=== PATIENT | female | born 1950 | race Caucasian/White ===

== ENCOUNTER 2016-09-20 06:32 | Outpatient (CLI) ==
[2016-06-04 13:44] VITALS: BMI 34.5
--- NOTE | 2016-09-21 08:49 | ECHO2D ---
Date of Exam: 09/20/16 Ordering Physician: EVENS JERONIMO Reason for Echo: CHEST PAIN, SOB, CABG WITH STENT M-Mode Normal Adult Results LV Dimensions Normal Adult Results AoV Opening excursions >1.6 >1.6 LVEDD-base- 3.5-5.8 4.9 Ao root dimensions 2.0-3.7 3.5 LVESD-base- 3.1-4.6 L. Atrium dimensions 1.9-3.8 3.7 Post. Wall thickness 0.8-1.1 1.2 IV septum (thickness) 0.7-1.2 1.2 Post. Wall excursion 0.72-1.3 NORMAL Septal motion 0.8 Systolic motion R. Ventricular cavity 1.5-2.0 NORMAL LVEF 60% 52% Paradoxical septal wall motion NORMAL 2-D : 2-D M Mode Echocardiogram was performed using apical four chamber and left parasternal long and short axis views. Mitral, tricuspid and aortic valves appear to be normal. Contractility of the left ventricle seems to be normal, so is the cavity size. Left atrial cavity size and aortic root appear to be normal. There is no pericardial effusion. There is no thrombus noted in the left ventricular or left aortic cavity. No mitral valve prolapse noted. M-MODE: MV: NORMAL AV: NORMAL TV: NORMAL PV: CHAMBER SIZE: NORMAL WALL MOTION: NORMAL PERICARDIUM: NORMAL INTERPRETATION: 1. BORDERLINE LEFT VENTRICULAR HYPERTROPHY 2. NORMAL LEFT VENTRICULAR CONTRACTILITY 3. NORMAL VALVES MTDD
== END 2016-09-20 06:33 | disposition home or self-care (01) ==
LOC: CAR 06:32
PROVIDERS: ATTEND Internal Medicine
DX: R07.9 Chest pain, unspecified (principal); R06.02 Shortness of breath; I25.810 Atherosclerosis of coronary artery bypass graft(s) without angina pectoris; Z95.5 Presence of coronary angioplasty implant and graft
CPT/HCPCS: 93005; 93010

== ENCOUNTER 2016-09-21 06:31 | Outpatient (CLI) ==
[2016-06-04 13:44] VITALS: BMI 34.5
--- NOTE | 2016-09-22 10:37 | STRESSMOD ---
Date of Test: 09/21/16 Ordering Physician: EVENS JERONIMO Medical History: CHEST PAIN, SOB, CABG WITH STENT Current Medications: LISINOPRIL, METOPROLOL, PLAVIX, ASA, SIMVASTATIN, FISH OIL , TRAZODONE, CRESTOR Physical Findings: S1, S2, NO S3 Resting EKG: SINUS RHYTHM/NO ACUTE CHANGES/PVC Target Heart Rate: 130/154 STAGE MPH/GRADE HEART RATE BPM BLOOD PRESSURE mmhg RHYTHM S-T SEGMENT UP DOWN SYMPTOMS,COMMENTS At Rest 60 118/72 SR X NONE 1 1.7/0% 100 132/80 SR X NONE 2 1.7/5% 3 1.7/10% 4 2.5/12% 5 3.4/14% 6 4.2/16% 7 5.18% Immediately after 104 SR X FATIGUE Total Time: 3:00 Maximum Heart Rate Reached: 104 Reason for Termination: FATIGUE 2 MIN POST EXERCISE: HR 72 BPM, BP 140/78 MMHG, SINUS RHYTHM, S-T +/- INTERPRETATION: 96% OXYGEN SATURATION WITH EXERCISE ON ROOM AIR 1. NO EVIDENCE OF ISCHEMIA BY ST-T WAVE CHANGES FROM HEART RATE 60/MINUTE TO 104 /MINUTE 2. NO CHEST PAIN OR CHEST DISCOMFORT 3.BLOOD PRESSURE RESPONSE: NORMAL 4. NO ARRHYTHMIAS NORMAL LEFT VENTRICULAR CONTRACTILITY--RESTING AND POST EXERCISE MTDD
--- NOTE | 2016-09-22 10:54 | ECHOSTRESS ---
Date of Exam: 09/21/16 Ordering Physician: EVENS JERONIMO Reason for Echo: CHEST PAIN, SOB, CABG WITH STENT, STRESS TEST--NO ISCHEMIA M-Mode Normal Adult Results LV Dimensions Normal Adult Results AoV Opening excursions >1.6 LVEDD-base- 3.5-5.8 Ao root dimensions 2.0-3.7 LVESD-base- 3.1-4.6 L. Atrium dimensions 1.9-3.8 Post. Wall thickness 0.8-1.1 IV septum (thickness) 0.7-1.2 Post. Wall excursion 0.72-1.3 Septal motion Systolic motion R. Ventricular cavity 1.5-2.0 LVEF 60% Paradoxical septal wall motion 2-D: NORMAL LEFT VENTRICULAR CONTRACTILITY--RESTING AND POST EXERCISE M-MODE: MV: AV: TV: PV: CHAMBER SIZE: WALL MOTION: NORMAL LEFT VENTRICULAR CONTRACTILITY--RESTING AND POST EXERCISE PERICARDIUM: INTERPRETATION: 1. NORMAL LEFT VENTRICULAR CONTRACTILITY--RESTING AND POST EXERCISE MTDD
== END 2016-09-21 06:32 | disposition home or self-care (01) ==
LOC: CAR 06:31
PROVIDERS: ATTEND Internal Medicine
DX: R07.9 Chest pain, unspecified (principal); R06.02 Shortness of breath; I25.810 Atherosclerosis of coronary artery bypass graft(s) without angina pectoris; Z95.5 Presence of coronary angioplasty implant and graft

== ENCOUNTER 2018-01-01 09:57 | Inpatient (IN) ==
[2018-01-01] MEDS ORDERED: DILAUDID 2 MG/ML SYRINGE IM STA (10:19)
[2018-01-01] MEDS ORDERED: TORADOL IVP PRN (10:20)
[2018-01-01] MEDS ORDERED: TORADOL IVP STA (10:20)
[2018-01-01] MEDS ORDERED: SOLU-MEDROL 125 MG IM STA (10:21)
[2018-01-01] MEDS ORDERED: ZOFRAN 4 MG/2 ML IVP STA ×2 (10:22→14:17)
[2018-01-01] MEDS ORDERED: ZOFRAN 4 MG/2 ML IVP PRN (10:22)
[2018-01-01] MEDS ORDERED: SOLU-MEDROL 125 MG IVP SCH (10:30)
[2018-01-01] MEDS: DEXTROSE 5%-1/2NS IV SOLUTION 1,000 ML IV SCH ×2 (11:07→23:51)
[2018-01-01] MEDS: XOPENEX 1.25 MG NEB SCH ×2 (11:10→17:34)
[2018-01-01] MEDS: SOLU-CORTEF 250 MG IVP SCH ×3 (11:19→21:01)
[2018-01-01] MEDS: ROCEPHIN 1 GM in SODIUM CHLORIDE 50 ML IV SCH (11:19)
[2018-01-01] MEDS ORDERED: XOPENEX 0.63 MG NEB SCH (12:00)
[2018-01-01] MEDS ORDERED: XANAX PO STA (12:31)
[2018-01-01] MEDS ORDERED: GI COCKTAIL PO STA (12:31)
[2018-01-01] MEDS ORDERED: XANAX ONE (12:42)
[2018-01-01] MEDS ORDERED: GI COCKTAIL PO ONE (12:49)
[2018-01-01] MEDS ORDERED: ATROPINE SULFATE PFS IVP PRN (13:50)
[2018-01-01] MEDS ORDERED: VISTARIL INJ IM PRN (13:50)
[2018-01-01] MEDS ORDERED: NITROSTAT SL PRN (13:50)
[2018-01-01] MEDS ORDERED: TYLENOL PO PRN (13:50)
[2018-01-01] MEDS ORDERED: MORPHINE 4 MG/ML VIAL IVP PRN (13:50)
--- NOTE | 2018-01-01 13:50 | DI ---
EXAM: Single view of the chest. History: Chest pain. Comparison: Chest radiograph 11/15/2013 Findings: Heart size is upper limits of normal. No focal consolidation. No appreciable pleural flu id and no pneumothorax. No acute osseous abnormalities. Impression: No acute cardiopulmonary process.
[2018-01-01 14:15] VITALS: BMI 34.2
[2018-01-01] MEDS ORDERED: DILAUDID 2 MG/ML SYRINGE IV STA (14:17)
[2018-01-01] MEDS ORDERED: LOVENOX SUBCUT ONE (14:19)
[2018-01-01] MEDS: NICODERM 21 MG TD SCH (15:46)
--- NOTE | 2018-01-01 16:12 | US ---
EXAM: Bilateral lower extremity venous Doppler History: Bilateral lower extremity pain, elevated D-dimer. Technique: Multiple sonographic images through the bilateral lower extremities were obtained. Color duplex Doppler was used to interrogate vascular flow. Findings: The bilateral common femoral, greater saphenous, profunda, superficial femoral, popliteal, peroneal, posterior tibial and anterior tibial veins demonstrate spontaneous flow with normal baljit josé luis and normal augmentation. Impression: No sonographic evidence for deep venous thrombosis.
[2018-01-01] MEDS: PROTONIX PO SCH (17:38)
[2018-01-02] MEDS: XOPENEX 1.25 MG NEB SCH ×2 (00:47→05:33)
[2018-01-02] MEDS: PROTONIX PO SCH (05:44)
[2018-01-02] MEDS: SOLU-CORTEF 250 MG IVP SCH (05:44)
[2018-01-02] MEDS ORDERED: ASPIRIN EC PO SCH ×2 (08:00→09:00)
[2018-01-02] MEDS ORDERED: DILAUDID 2 MG/ML SYRINGE IVP STA (08:19)
[2018-01-02] MEDS ORDERED: NITROSTAT SL SCH (08:30)
[2018-01-02] MEDS ORDERED: NON-FORMULARY MEDICATION (Omega-3 Fatty Acids/Fish Oil [Fish Oil 1,000 Mg Capsule] 1 EACH) PO SCH (09:00)
[2018-01-02] MEDS ORDERED: CRESTOR PO SCH (09:00)
[2018-01-02] MEDS ORDERED: PLAVIX PO SCH (09:00)
[2018-01-02] MEDS ORDERED: OMEGA-3 FISH OIL PO SCH (09:00)
[2018-01-02] MEDS ORDERED: NON-FORMULARY MEDICATION (Rosuvastatin Calcium [Crestor] 20 MG) PO SCH (09:00)
[2018-01-02] MEDS ORDERED: OXYBUTYNIN CHLORIDE 10 MG PO SCH (09:00)
[2018-01-02] MEDS ORDERED: NON-FORMULARY MEDICATION (Lisinopril [Lisinopril] 20 MG) PO SCH (09:00)
[2018-01-02] MEDS ORDERED: NON-FORMULARY MEDICATION (Trazodone Hcl [Trazodone Hcl] 100 MG) PO SCH (09:00)
[2018-01-02] MEDS ORDERED: LOPRESSOR PO SCH (09:00)
[2018-01-02] MEDS ORDERED: DITROPAN XL PO SCH (09:00)
[2018-01-02] MEDS ORDERED: ZESTRIL PO SCH (09:00)
[2018-01-02] MEDS: ROCEPHIN 1 GM in SODIUM CHLORIDE 50 ML IV SCH (09:06)
[2018-01-02] MEDS: NICODERM 21 MG TD SCH (09:11)
--- NOTE | 2018-01-02 09:25 | HP ---
DATE OF SERVICE: 01/01/18 REASON FOR HOSPITALIZATION/HISTORY OF PRESENT ILLNESS: The patient is on Cipro, got Deca 12/29. Headaches, right arm hurting, coughing , weak, nauseated-can't eat and vomited yesterday duration of 5 days. PAST MEDICAL HISTORY: Deaf left ear Kidney stones Hypertension Dyslipidemia COPD Smoking Insomnia Bronchitis PAST SURGICAL HISTORY: CABGS Tonsillectomy Adenoidectomy D&C REVIEW OF SYSTEMS: CONSTITUTIONAL: No fever, Fatigue. HEENT: Sinus drainage, no sore throat. RESPIRATORY: Cough, no congestion. CARDIOVASCULAR: Atypical chest pain for coronary artery disease. No angina, CHF symptoms. Palpitations. Shortness of breath. GASTROINTESTINAL: No melena or abdominal pain. No GERD. Nauseated. Vomiting. GENITOURINARY: No hematuria, no prostatism, no polyuria. REHAB DEPARTMENT MANAGER: No blackout, Dizziness, Headache, no double vision. GAIT: unsteady. MUSCULOSKELETAL: Osteoarthritis pain, no joint swelling. ENDOCRINE: Weight loss; 3 pounds, 9 pounds in 4 weeks., no weight gain. SKIN: Not dry, no rash. PSYCHIATRIC: Not anxious, no depression, no suicidal thoughts, no homicidal thoughts. Was seen in office on 12/29/17 and was prescribed Cipro and Decadron. Return 06/10 due ot right arm pain, cough and nausea and was sent inpatient admission. SOCIAL HISTORY: Marital Status: . Alcohol Usage: Occasional. Tobacco Usage: Yes. FAMILY HISTORY: Father CAD age 57 Mother COPD, CAD Brother 4-1 3 alive CAD Sister 3 CAD MEDICATIONS: Trazodone 100mg PO daily Ditropan XL 10mg PO daily Metoprolol 25mg PO two times per day Plavix 75mg PO daily Crestor 20mg PO daily Lisinopril 20mg PO daily Nitroglycerin 0.4mg PO one, no more than 3 tablets within 15 minutes PRN Fish Oil PO five times a day Aspirin 81mg PO daily ALLERGIES: Lipitor Calcium with Vitamin D Doxycycline PHYSICAL EXAMINATION: V/S: Pulse 64, blood pressure 98/64, temperature 97.3, oxygen saturation 98%. Height 5'0, weight 175.4 with BMI 39.3. GENERAL APPEARANCE: Oriented times three. HEENT: Pale NECK: No JVP, no bruits. RESPIRATORY:Decreased breath sounds. CARDIOVASCULAR: S1, S2, no S3, no murmurs. No cyanosis, clubbing. No ascites. GI/ABDOMEN: No tenderness. Bowel sounds are active. No CVA tenderness. EXTREMITIES: edema, pulses +1, equal. REHAB DEPARTMENT MANAGER: Deep tendon reflexes, sensory, motor and gait all normal. ASSESSMENT: 1. Acute bronchitis/pleuritis pain 2. Chest pain/right arm pain 3. Dehydration 4. Questionable UTI 5. Nausea times 5 days. 6. Bladder leakage- refused urology 7. Chronic bronchitis 8. CAD 9. CABGS/stent 10.Cath 2014 11.Hypertension/LVH 12.Dyslipidemia 13.COPD/Smoking 14.Insomnia 15.Bronchitis/UTI PLAN: 1. Admit 2. Routine telemetry orders 3. 1000 cc D5 1/2 normal Q 2 hours 4. Daily CBC and CMP 5. U/A and cultures and sensitivity 6. TSH/T4/BNP/ABG/D-Dimer 7. Protonix 40mg PO twice 8. Rocephin 1 gram IV piggy back 24 hourly 9. NEBS -Xopenex four times a day 10.PFT AM 11.Zofran 4mg IV now and 6 hourly PRN 12.Echo 2DM Mode 13.Solu-Cortef 125mg IV now and Q 8 hours 14.Toradol 30mg PO now and 8 hours PRN 15.Dilaudid 2mg IV times one. TIME SPENT: More than 70 minutes. MTDD
--- NOTE | 2018-01-02 09:34 | DS ---
DATE OF SERVICE: 01/02/18 FINAL DIAGNOSIS: 1. Acute lateral wall infarction/Ischemia 2. History of coronary bypass surgery, 2006 with stents put in by Dr. Nance last catheterization by Dr. Nance 2014 3. History of smoking with chronic lung disease 4. Hypertension/ LVH 5. Dyslipidemia 6. Chronic bronchitis 7. Obesity, BMI 34 8. Generalized osteoarthritis 9. Osteoporosis DISCHARGE INSTRUCTIONS: Transfer to [facility]. MEDICATIONS AT DISCHARGE: Plavix 75mg PO daily Lovenox 100mg given yesterday Toprol 25mg twice a day Crestor 20mg PO daily Trazodone 100mg PO HS Lisinopril 20mg PO daily Nitroglycerin PRN Sublingual for chest pain Fish oil 1000mg 5 tablets a day Aspirin 81mg PO daily Rocephin 1 gram given yesterday DIET INSTRUCTIONS: Regular SMOKING: Current every day smoker LABS: On admission yesterday Cardiac markers, CK and Troponin negative. This morning CK 778 with 18% CK-MB. Troponin 4.4 this morning. EKG sinus rhythm, old inferior wall SD yesterday twice, this morning EKG showed ST-T wave changes in the lateral leads. May 2017 A1c was 5.5. HOSPITAL COURSE: 67 year old white female was seen in the office yesterday with headache, nausea and right arm pain. The patient had chest pain which is localized on the right side. Other nonspecific complaints the patient said that she was fatigue and weak. Initial workup for any acute marker event was negative yesterday. The patient continued to have right arm and she was given Dilaudid 2mg IV along with Toradol 30mg IV. Lovenox was given yesterday 100mg SUBCUT. She was continued on the rest of the medications. There was no ST-T wave change on telemetry or EKG yesterday. This morning the patient still has right arm pain and she describes more like chest pressure type of feeling off and on. Nausea which was continuous yesterday has subsided. She has no symptoms of CHF. Her echocardiogram this morning showed LV contractility was practically normal with LV ejection fraction 52% with mild LVH and mildly enlarged left atrial cavity with normal valves. The patient was advised further evaluation by shoemaking finisher. [facility] was called and the patient's condition at the time of transfer stable. TIME SPENT: More than 60 minutes. [facility]
[2018-01-02 10:25] VITALS: BP 116/69; TEMP 98.1
--- NOTE | 2018-01-02 11:04 | ECHO2D ---
Date of Exam: 01/02/18 Ordering Physician: DR. EVENS JERONIMO Room #: [id number] Reason for Echo: CHEST PAIN M-Mode Normal Adult Results LV Dimensions Normal Adult Results AoV Opening excursions >1.6 >1.6 LVEDD-base- 3.5-5.8 4.8 Ao root dimensions 2.0-3.7 3.2 LVESD-base- 3.1-4.6 L. Atrium dimensions 1.9-3.8 3.9 Post. Wall thickness 0.8-1.1 1.2 IV septum (thickness) 0.7-1.2 1.3 Post. Wall excursion 0.72-1.3 NORMAL Septal motion NORMAL Systolic motion R. Ventricular cavity 1.5-2.0 NORMAL LVEF 60% 54% Paradoxical septal wall motion NORMAL 2-D : 2-D M Mode Echocardiogram was performed using apical four chamber and left parasternal long and short axis views. Mitral, tricuspid and aortic valves appear to be normal. Contractility of the left ventricle seems to be normal, so is the cavity size. Left atrial cavity size and aortic root appear to be normal. There is no pericardial effusion. There is no thrombus noted in the left ventricular or left aortic cavity. No mitral valve prolapse noted. M-MODE: MV: NORMAL AV: NORMAL TV: NORMAL PV: CHAMBER SIZE: NORMAL WALL MOTION: NORMAL PERICARDIUM: NORMAL INTERPRETATION: 1. LEFT VENTRICULAR HYPERTROPHY 2. NORMAL VALVES 3. NORMAL LEFT VENTRICULAR CONTRACTILITY MTDD
[2018-01-02] MEDS ORDERED: DESYREL PO SCH (21:00)
== END 2018-01-02 10:35 | disposition short-term general hospital (02) | DRG 282 ==
LOC: MEDSURG A 09:57
PROVIDERS: ADMIT Internal Medicine; ATTEND Internal Medicine
DX: I21.29 ST elevation (STEMI) myocardial infarction involving other sites (principal); I24.9 Acute ischemic heart disease, unspecified; I10 Essential (primary) hypertension; J44.9 Chronic obstructive pulmonary disease, unspecified; I51.7 Cardiomegaly; E78.5 Hyperlipidemia, unspecified; E66.9 Obesity, unspecified; M19.90 Unspecified osteoarthritis, unspecified site; F17.210 Nicotine dependence, cigarettes, uncomplicated; Z95.1 Presence of aortocoronary bypass graft; Z95.5 Presence of coronary angioplasty implant and graft; M81.0 Age-related osteoporosis without current pathological fracture; Z68.34 Body mass index [BMI] 34.0-34.9, adult; Z79.02 Long term (current) use of antithrombotics/antiplatelets; Z79.899 Other long term (current) drug therapy
CPT/HCPCS: 36415; 80053; 81001; 82550; 82553; 82803; 83880; 84439; 84443; 84484; 85025; 85379; 93005; 93010; 94640

== ENCOUNTER 2018-01-02 10:41 | Outpatient (CLI) | payer OTHER ==
[2018-01-01 14:15] VITALS: BMI 34.2
== END 2018-01-02 11:02 | disposition short-term general hospital (02) ==
LOC: AMBL 10:41
PROVIDERS: ATTEND Emergency Medicine
DX: J20.9 Acute bronchitis, unspecified (principal); R07.81 Pleurodynia; R07.9 Chest pain, unspecified

== ENCOUNTER 2018-09-13 12:13 | Outpatient (CLI) | payer OTHER ==
--- NOTE | 2018-09-13 12:51 | DI ---
EXAM: Two views of the chest. History: Chronic obstructive pulmonary disease Comparison: Chest radiograph 01/01/2018 Findings: Heart is borderline enlarged. Coronary artery stent. No focal consolidation. No appreci able pleural fluid and no pneumothorax. No acute osseous abnormalities. Impression: No acute cardiopulmonary process
== END 2018-09-13 12:14 | disposition home or self-care (01) ==
LOC: RAD 12:13
PROVIDERS: ATTEND Internal Medicine
DX: R06.02 Shortness of breath (principal); J44.9 Chronic obstructive pulmonary disease, unspecified; I25.10 Atherosclerotic heart disease of native coronary artery without angina pectoris

== ENCOUNTER 2018-09-25 07:02 | Outpatient (CLI) | payer OTHER ==
--- NOTE | 2018-09-26 10:32 | ECHO2D ---
Date of Exam: 09/25/18 Ordering Physician: DR. EVENS JERONIMO Room #: OP Reason for Echo: 09/25/18 M-Mode Normal Adult Results LV Dimensions Normal Adult Results AoV Opening excursions >1.6 >1.6 LVEDD-base- 3.5-5.8 4.3 Ao root dimensions 2.0-3.7 3.2 LVESD-base- 3.1-4.6 L. Atrium dimensions 1.9-3.8 4.0 Post. Wall thickness 0.8-1.1 1.2 IV septum (thickness) 0.7-1.2 1.2 Post. Wall excursion 0.72-1.3 0.7 Septal motion NORMAL Systolic motion R. Ventricular cavity 1.5-2.0 NORMAL LVEF 60% 50% Paradoxical septal wall motion NORMAL 2-D : MILDLY HYPOKINETIC INFERIOR WALL--NORMAL LEFT VENTRICLE SIZE, BORDERLINE HIGH LEFT ATRIAL SIZE, VALVES--NORMAL, NO EFFUSION, NO THROMBUS M-MODE: MV: NORMAL AV: NORMAL TV: NORMAL PV: CHAMBER SIZE: BORDERLINE ENLARGED LEFT ATRIAL CAVITY WALL MOTION: MILDLY HYPOKINETIC INFERIOR POST WALL PERICARDIUM: NORMAL INTERPRETATION: 1. LEFT VENTRICULAR HYPERTROPHY WITH BORDERLINE ENLARGED LEFT ATRIAL CAVITY 2. MILDLY HYPOKINETIC INFERIOR POST WALL EJECTION FRACTION 50% 3. NORMAL VALVES MTDD
== END 2018-09-25 07:03 | disposition home or self-care (01) ==
LOC: CAR 07:02
PROVIDERS: ATTEND Internal Medicine
DX: R06.02 Shortness of breath (principal); I25.10 Atherosclerotic heart disease of native coronary artery without angina pectoris; J44.9 Chronic obstructive pulmonary disease, unspecified
CPT/HCPCS: 93005; 93010

== ENCOUNTER 2018-09-26 06:45 | Outpatient (CLI) | payer OTHER ==
--- NOTE | 2018-09-26 10:14 | STRESSECHO ---
Date of Test: 09/26/18 Ordering Physician: DR. EVENS JERONIMO Occupation:RETIRED Reason for Exam: SOB, CAD, COPD, CABG 2007 Smoking History: 50+ PK/YRS Height: 60" Weight: 182 LBS Current Medications: LISINOPRIL, METOPROLOL, OXYBUTYNIN, ASA, CLOPIDOGREL, ROSUVASTATIN, ISOSORBIDE MONONITRATE, SYMBICORT, TRAZODONE, NITRO Resting EKG: SINUS RHYTHM/ LEFT VENTRICULAR HYPERTROPHY Target Heart Rate: 129/152 S-T SEGMENT STAGE MPH/GRADE HEART RATE BPM BLOOD PRESSURE MMHG RHYTHM +/- ELEVATION DEPRESSION SYMPTOMS AT REST 58 BPM 118/86 MMHG SR X NONE 1 1.7/10% 100 BPM 146/78 MMHG SR X NONE 2 2.5/12% 3 3.4/14% 4 4.2/16% 5 5.0/18% Immediately After 119 BPM 156/80 MMHG SR X SHORT OF AIR Minutes Post Exercise 5:00 65 BPM 128/82 MMHG SR X NONE Minutes Post Exercise DURATION OF EXERCISE: 4:22 MAXIMUM HEART RATE REACHED: 119 BPM REASON FOR TERMINATION: SHORT OF AIR 91% OXYGEN SATURATION ON ROOM AIR WITH EXERCISE METS 7.0 INTERPRETATION: 1. NO EVIDENCE OF ISCHEMIA BY ST-T WAVE 2. NO CHEST PAIN OR DISCOMFORT 3. FEW PVC'S AT REST, NONE WITH EXERCISE 4. BLOOD PRESSURE RESPONSE: ACCEPTABLE NORMAL LEFT VENTRICULAR CONTRACTILITY--RESTING AND POST EXERCISE MTDD
--- NOTE | 2018-09-27 15:02 | ECHOSTRESS ---
Date of Exam: 09/26/2018 Ordering Physician: DR. JERONIMO Reason for Echo: SHORTNESS OF BREATH, CORONARY ARTERY DISEASE, CHRONIC OBSTRUCTIVE PULMONARY DISEASE, STRESS TEST = NO ISCHEMIA M-Mode Normal Adult Results LV Dimensions Normal Adult Results AoV Opening excursions >1.6 LVEDD-base- 3.5-5.8 Ao root dimensions 2.0-3.7 LVESD-base- 3.1-4.6 L. Atrium dimensions 1.9-3.8 Post. Wall thickness 0.8-1.1 IV septum (thickness) 0.7-1.2 Post. Wall excursion 0.72-1.3 Septal motion Systolic motion R. Ventricular cavity 1.5-2.0 LVEF 60% Paradoxical septal wall motion 2-D: NORMAL LEFT VENTRICULAR CONTRACTILITY RESTING AND POST EXERCISE (MAY BE MILD INFERIOR POSTERIOR WALL HYPOKINESIA AT REST) M-MODE: MV: AV: TV: PV: CHAMBER SIZE: WALL MOTION: NORMAL LEFT VENTRICULAR CONTRACTILITY RESTING AND POST EXERCISE ( MAY BE MILD INFERIOR POSTERIOR WALL HYPOKINESIA AT REST) PERICARDIUM: INTERPRETATION: 1. NORMAL LEFT VENTRICULAR CONTRACTILITY RESTING AND POST EXERCISE (MAY BE MILD INFERIOR POSTERIOR WALL HYPOKINESIA AT REST) MTDD
== END 2018-09-26 06:46 | disposition home or self-care (01) ==
LOC: CAR 06:45
PROVIDERS: ATTEND Internal Medicine
DX: R06.02 Shortness of breath (principal); I25.10 Atherosclerotic heart disease of native coronary artery without angina pectoris; J44.9 Chronic obstructive pulmonary disease, unspecified

== ENCOUNTER 2020-03-12 11:07 | Inpatient (IN) ==
--- NOTE | 2020-03-12 12:12 | ED.PDOC ---
General ED Provider: Dr. RAKESH SCHILLING Chief Complaint: Abdominal Pain Stated Complaint: LLQ abdominal pain for 2 days. Associated diarrhea and intense abdominal cramping Time Seen by Physician: 12:11 Mode of Arrival: Walk-In Information Source: Patient Exam Limitations: No limitations Primary Care Provider: EVENS JERONIMO Referred to ED by: PCP Nursing and Triage Documentation Reviewed and Agree: Yes Does patient meet sepsis criteria?: No System Inflammatory Response Syndrome: Not Applicable Sepsis Protocol: For patient's 13 years and over: Temp is 96.8 and below OR 101 and greater Pulse >90 BPM Resp >20/minute Acutely Altered Mental Status Are patient's symptoms suggestive of a new infection, such as: -Pneumonia -Skin, Soft Tissue -Endocarditis -UTI -Bone, Joint Infection -Implantable Device -Acute Abdominal Infection -Wound Infection -Meningitis -Blood Stream Catheter Infection -Unknown GI Complaint Exam Abdominal Pain Complaint/Exam Onset: Sudden Duration: 3 days Symptoms Are: Still present Timing: Intermittent Initial Severity: Moderate Current Severity: Moderate Location of Pain: Diffuse Radiates To: Reports Back and LLQ Character: Reports Aching and Cramping Aggravating: Reports Movement Alleviating: Reports None Associated Signs and Symptoms: Reports Dysuria, Urinary frequency, Nausea and Diarrhea; Denies Diaphoresis, Fever, Cough, Chest pain, Dizziness, Back pain, Constipation, Blood in stool, Decreased urine output, Decreased appetite, Vaginal bleeding, Vaginal discharge, Vomiting, Sore throat and Decreased activity AAA Risk Factors: Reports None Cardiac Risk Factors: Reports None Related Surgical History: Reports None Abdominal Findings: Present Rebound tenderness and Peritoneal signs; Absent McBurney's Point tender Differential Diagnoses: Diverticulitis Vomiting/Diarrhea Complaint/Exam Onset/Duration: 3d Symptoms Are: Resolved Episodes of Vomiting over last 24 Hours: 0 Episodes of Diarrhea Over Last 24 Hours: 2 Initial Severity: Moderate Current Severity: None Character of Diarrhea: Reports Watery Aggravating: Reports Food and Liquids Alleviating: Reports None Associated Signs and Symptoms: Reports Light-headedness, Fever, Abdominal pain and Cramping Last Oral Intake: earlier today Last Bowel Movement: yesterday Review of Systems Review Of Systems Constitutional: Reports Fever and Loss of appetite All Other Systems: Reviewed and Negative [facility] Medical History (Updated 03/12/20 @ 16:13 by VIC WILDER RN) CAD (coronary artery disease) Carpal tunnel syndrome of left wrist COPD (chronic obstructive pulmonary disease) History of UT (myocardial infarction) Hyperlipidemia Hypertension Family History (Updated 03/12/20 @ 16:15 by VIC WILDER, RN) FATHER Myocardial infarct Mother Myocardial infarct Emphysema of lung SISTER Emphysema of lung BROTHER Emphysema of lung UNCLE Cancer Other Autoimmune disease Social History (Updated 03/12/20 @ 16:15 by VIC WILDER, RN) Smoking and tobacco status: Current every day smoker Physical Exam Physical Exam Appearance: Reports Ill-appearing and Obese Critical Care Note Critical Care Note Total Time (mins): 60 Course Course Hematology/Chemistry: 03/12/20 12:20 03/12/20 12:20 Orders, Labs, Meds: Lab Review 03/12/20 03/12/20 03/12/20 12:05 12:20 12:20 WBC 10.77 H RBC 4.68 Hgb 15.4 Hct 45.5 MCV 97.2 MCH 32.9 H MCHC 33.8 RDW Coeff of Kourtney 13.0 Plt Count 168 Immature Gran % (Auto) 0.4 Neut % (Auto) 80.1 H Lymph % (Auto) 10.8 [place] % (Auto) 8.2 Eos % (Auto) 0.3 Baso % (Auto) 0.2 Neut # (Auto) 8.6 H Lymph # (Auto) 1.2 [place] # (Auto) 0.9 Eos # (Auto) 0.0 Baso # (Auto) 0.0 Immature Gran # (Auto) 0.0 Sodium 135.8 Potassium 4.12 Chloride 101.8 Carbon Dioxide 27.9 Anion Gap 10.22 BUN 12.8 Creatinine 0.83 Estimated GFR (MDRD) 68.00 BUN/Creatinine Ratio 15.42 Glucose 94.7 Calcium 9.79 Total Bilirubin 0.82 AST 38.6 H ALT 20.7 Alkaline Phosphatase 93.1 Total Protein 7.61 Albumin 4.32 Globulin 3.29 Albumin/Globulin Ratio 1.31 Urine Color [place] Urine Clarity Clear Urine pH 5.5 Ur Specific [place] 1.025 Urine Protein 1+ H Urine Glucose (UA) Negative Urine Ketones Negative Urine Blood 1+ H Urine Nitrite Positive H Urine Bilirubin 1+ H Urine Urobilinogen 1.0 H Ur Leukocyte Esterase Negative Urine Microscopic WBC 2-5 Ur Squamous Epith Cells 10-20 Urine Bacteria 2+ Orders Category Date Time Status EKG-(ED ONLY) Stat CARDIO 03/12/20 12:12 Completed ACTIVITY .BR with BRP CARE 08/20/20 14:55 Active BLOOD GLUCOSE MONITORING 0630,1100,1700,2100 CARE 03/12/20 14:56 Active INTAKE & OUTPUT Q8HR CARE 03/12/20 14:55 Active NPO REMINDER: IMAGING ONCE CARE 03/12/20 12:17 Completed VITAL SIGNS Q8HR CARE 03/12/20 14:55 Active CBC W/ AUTO DIFF DAILY@0600 LAB 03/13/20 06:00 Ordered CBC W/ AUTO DIFF DAILY@0600 LAB 03/14/20 06:00 Ordered CBC W/ AUTO DIFF Stat LAB 03/12/20 12:20 Completed CMP [COMPREHENSIVE METABOLIC PANEL] Stat LAB 03/12/20 12:20 Completed COMPREHENSIVE METABOLIC PANEL DAILY@0600 LAB 03/13/20 06:00 Ordered COMPREHENSIVE METABOLIC PANEL DAILY@0600 LAB 03/14/20 06:00 Ordered UA [URINALYSIS C & S IF INDICATED] Stat LAB 03/12/20 12:05 Completed URINE CULTURE Stat LAB 03/12/20 12:05 Received Enoxaparin Sodium [Lovenox] MEDS 03/12/20 15:00 Active 40 mg SUBCUT DAILY Hydromorphone HCl [Dilaudid 1 mg/ml Syringe] MEDS 03/12/20 14:55 Active 1 mg IVP Q4HR PRN Levofloxacin/D5w [Levaquin 500 mg/100 ml D5w] MEDS 03/12/20 14:17 Discontinued 500 mg in 100 ml IV ONCE Metronidazole [Flagyl] MEDS 03/12/20 14:20 Discontinued 500 mg PO ONCE STA Metronidazole [Flagyl] MEDS 03/12/20 21:00 Active 500 mg PO Q8HR Ondansetron HCl/Pf [Zofran 4 mg/2 ml] MEDS 03/12/20 14:55 Active 4 mg IVP Q6H PRN RESUSCITATION STATUS Routine OTHERS 03/12/20 14:[address] ABDOMEN/PELVIS W/WO CONTRAS Stat RADS 03/12/20 12:15 Completed PT CONSULT Routine THERAPIES 03/12/20 Ordered Medications Generic Name Dose Route Start Last Admin Trade Name Freq PRN Reason Stop Dose Admin Aspirin 81 mg 03/13/20 08:30 Aspirin Ec PO DAILYWM [facility] Clopidogrel Bisulfate 75 mg 03/13/20 09:00 Plavix PO DAILY [facility] Enoxaparin Sodium 40 mg 03/12/20 15:00 03/12/20 17:05 Lovenox SUBCUT 40 mg DAILY STAS Administration Fish Oil 1,000 mg 03/12/20 16:35 [place]-3 Fish Oil PO 5XD PRN HIGH CHOLESTEROL PER PATIENT Hydromorphone HCl 1 mg 03/12/20 14:55 Dilaudid 1 Mg/Ml Syringe IVP Q4HR PRN Severe Pain Sodium Chloride 1,000 mls @ 83 mls/hr 03/12/20 15:30 03/12/20 17:04 Sodium Chloride IV 83 mls/hr .Q12H3M STAS Administration Levofloxacin/Dextrose 500 mg in 100 mls @ 100 mls/hr 03/13/20 09:00 Levaquin 500 Mg/100 Ml D5w IV 03/16/20 08:59 DAILY [facility] Isosorbide Mononitrate 30 mg 03/13/20 09:00 Imdur PO DAILY [facility] Lisinopril 10 mg 03/13/20 09:00 Zestril PO DAILY [facility] Metoprolol Tartrate 25 mg 03/12/20 21:00 Lopressor PO BID [facility] Metronidazole 500 mg 03/12/20 21:00 Flagyl PO 03/15/20 20:59 Q8HR [facility] Nitroglycerin 0.4 mg 03/12/20 16:17 Nitrostat SL Q5MIN X 3 DOSES PRN Chest Pain Ondansetron HCl 4 mg 03/12/20 14:55 Zofran 4 Mg/2 Ml IVP Q6H PRN Nausea / Vomiting Oxybutynin Chloride 10 mg 03/13/20 09:00 Ditropan Xl PO DAILY [facility] Ranolazine 500 mg 03/12/20 21:00 Ranexa PO BID [facility] Rosuvastatin Calcium 40 mg 03/13/20 09:00 Crestor PO DAILY [facility] Trazodone HCl 100 mg 03/12/20 21:00 Desyrel PO BEDTIME STAS Discontinued Medications Generic Name Dose Route Start Last Admin Trade Name Freq PRN Reason Stop Dose Admin Levofloxacin/Dextrose 500 mg in 100 mls @ 100 mls/hr 03/12/20 14:17 03/12/20 14:33 Levaquin 500 Mg/100 Ml D5w IV 03/12/20 15:16 100 mls/hr ONCE STA Administration Metronidazole 500 mg 03/12/20 14:20 03/12/20 14:31 Flagyl PO 03/12/20 14:21 500 mg ONCE STA Administration Vital Signs: Temp Pulse Resp BP Pulse Ox 03/12/20 11:14 98.9 F 75 18 112/71 96 Discharge Plan Discharge Patient Disposition: ADMITTED INPATIENT Discharge Problem: Diverticulitis of sigmoid colon, Acute UTI ED Provider: RAKESH SCHILLING Condition: Fair Discharge Date/Time: 03/12/20 15:35
[2020-03-12 12:32] LABS: BILIRUBIN,URINE 1+ (NEGATIVE); CLARITY,URINE Clear (CLEAR); COLOR,URINE Orange (YELLOW); GLUCOSE, URINE (UA) Negative (NEGATIVE); KETONES,URINE Negative (NEGATIVE); LEUKOCYTE ESTERASE ,URINE Negative (NEGATIVE); NITRITE,URINE Positive (NEGATIVE); PH,URINE 5.5 (5-9); PROTEIN,URINE 1+ (NEGATIVE); URINE, BLOOD 1+ (NEGATIVE)
[2020-03-12 12:33] LABS: BASOPHILS % (AUTO) 0.2 % (0.0-3.0); EOSINOPHILS % (AUTO) 0.3 % (0.0-7.0); HEMATOCRIT 45.5 % (37.0-47.0); HEMOGLOBIN 15.4 g/dl (12.0-16.0); IMMATURE GRANULOCYTE % (AUTO) 0.4 % (0.0-5.0); LYMPHOCYTES # (AUTO) 1.2 K/uL (0.60-3.4); LYMPHOCYTES % (AUTO) 10.8 (10.0-50.0); MEAN CORPUSCULAR HEMOGLOBIN 32.9 pg (27.0-31.0); MEAN CORPUSCULAR HGB CONC 33.8 (31.8-35.4); MEAN CORPUSCULAR VOLUME 97.2 fl (81.0-99.0); MONOCYTES # (AUTO) 0.9 K/uL (0.4-2.0); MONOCYTES % (AUTO) 8.2 (0-10); NEUTROPHILS # (AUTO) 8.6 K/ul (2.0-6.9); NEUTROPHILS % (AUTO) 80.1 % (42.2-75.2); PLATELET COUNT 168 10^3/uL (140-440); RED BLOOD COUNT 4.68 10^6/ul (4.20-5.40); WHITE BLOOD COUNT 10.77 K/ul (4.6-10.2)
[2020-03-12 12:35] LABS: BACTERIA,URINE 2+ (NOT PRESENT)
[2020-03-12 12:44] LABS: ALANINE AMINOTRANSFERASE 20.7 U/L (0-35); ALBUMIN 4.32 g/dL (3.5-5.0); ALKALINE PHOSPHATASE 93.1 U/L (53-141); ASPARTATE AMINO TRANSFERASE 38.6 U/L (14-36); BILIRUBIN,TOTAL 0.82 mg/dL (0.2-1.3); BLOOD UREA NITROGEN 12.8 mg/dL (7-17); CALCIUM 9.79 mg/dL (8.4-10.2); CARBON DIOXIDE 27.9 mmol/L (22-30.0); CHLORIDE 101.8 mmol/L (98-107); CREATININE 0.83 mg/dL (0.60-1.30); GLUCOSE 94.7 mg/dL (74-106); POTASSIUM 4.12 mmol/L (3.5-5.1); SODIUM 135.8 mmol/L (134.5-145); TOTAL PROTEIN 7.61 g/dL (6.3-8.2)
--- NOTE | 2020-03-12 13:54 | CT ---
EXAM: CT abdomen with and without contrast. CT pelvis with and without contrast. HISTORY: Left lower quadrant pain. COMPARISON: None. TECHNIQUE: Multiple axial images of the abdomen and pelvis were obtained prior to and following intr avenous administration of 75 mL of Omnipaque 350, low osmolar. Images reformatted in the sagittal an d coronal plane. FINDINGS: Lung bases are clear. Degenerative changes present in the spine. Liver is homogeneous. Wedge-shaped low density without enhancement in the lateral spleen on series 8 image 58 and series 4 image 16 noted. There is no adjacent inflammation. Calcified granulomatous changes seen in the sple en. Small splenules noted. The pancreas and adrenal glands are normal. There may be some dependent calcifications within the ga llbladder on series 5 image 40. Kidneys are normal. There is mild wall thickening of the sigmoid colon which is centered around a diverticulum best seen on series 4 image 56. There is no evidence for bowel obstruction, perforation, or abscess. No diver ticula present. Appendix is normal, coursing superiorly towards the inferior liver. Duodenal divert iculum present in the descending portion. Small fat-containing umbilical hernia noted. Bladder is collapsed. Uterus demonstrates normal contour. Atherosclerotic calcifications are present. There is fusiform dilatation of the aorta to a maximum d iameter of 2.8 cm AP by 2.6 cm transverse. IMPRESSION: 1. Moderate acute sigmoid diverticulitis. No complication. 2. Cholelithiasis. 3. Previous splenic infarction.
[2020-03-12] MEDS ORDERED: LEVAQUIN 500 MG/100 ML D5W 500 MG/100 ML BAG IV STA (14:17)
[2020-03-12] MEDS ORDERED: FLAGYL PO STA (14:20)
[2020-03-12] MEDS ORDERED: ZOFRAN 4 MG/2 ML IVP PRN (14:55)
[2020-03-12] MEDS ORDERED: DILAUDID 1 MG/ML SYRINGE IVP PRN (14:55)
[2020-03-12] MEDS ORDERED: NITROSTAT SL PRN (16:17)
[2020-03-12] MEDS ORDERED: OMEGA PO PRN (16:17)
[2020-03-12] MEDS ORDERED: [UNRECOGNIZED DRUG - OTHER] PO PRN (16:17)
[2020-03-12 16:26] VITALS: BMI 33.7
[2020-03-12] MEDS ORDERED: OMEGA-3 FISH OIL PO PRN (16:35)
[2020-03-12] MEDS: SODIUM CHLORIDE 1,000 ML IV SCH (17:04)
[2020-03-12] MEDS: LOVENOX SUBCUT SCH (17:05)
[2020-03-12] MEDS ORDERED: SODIUM CHLORIDE 1,000 ML IV SCH (21:00)
[2020-03-12] MEDS: DESYREL PO SCH (21:09)
[2020-03-12] MEDS: RANEXA PO SCH (21:09)
[2020-03-12] MEDS: LOPRESSOR PO SCH (21:09)
[2020-03-12] MEDS: FLAGYL PO SCH (21:10)
[2020-03-13 05:30] LABS: BASOPHILS % (AUTO) 0.4 % (0.0-3.0); EOSINOPHILS # (AUTO) 0.1 K/ul (0.0-0.7); EOSINOPHILS % (AUTO) 1.3 % (0.0-7.0); HEMATOCRIT 40.1 % (37.0-47.0); HEMOGLOBIN 13.6 g/dl (12.0-16.0); IMMATURE GRANULOCYTE % (AUTO) 0.2 % (0.0-5.0); LYMPHOCYTES # (AUTO) 1.1 K/uL (0.60-3.4); MEAN CORPUSCULAR HEMOGLOBIN 33.2 pg (27.0-31.0); MEAN CORPUSCULAR HGB CONC 33.9 (31.8-35.4); MEAN CORPUSCULAR VOLUME 97.8 fl (81.0-99.0); MONOCYTES # (AUTO) 0.4 K/uL (0.4-2.0); NEUTROPHILS # (AUTO) 3.7 K/ul (2.0-6.9); NEUTROPHILS % (AUTO) 69.1 % (42.2-75.2); PLATELET COUNT 147 10^3/uL (140-440); RDW COEFFICIENT OF VARIATION 13.1 % (11.6-14.8); WHITE BLOOD COUNT 5.28 K/ul (4.6-10.2)
[2020-03-13 05:44] LABS: ALANINE AMINOTRANSFERASE 16.3 U/L (0-35); ALBUMIN 3.39 g/dL (3.5-5.0); ALKALINE PHOSPHATASE 71.6 U/L (53-141); ASPARTATE AMINO TRANSFERASE 26.4 U/L (14-36); BILIRUBIN,TOTAL 0.47 mg/dL (0.2-1.3); BLOOD UREA NITROGEN 11.8 mg/dL (7-17); CALCIUM 9.22 mg/dL (8.4-10.2); CARBON DIOXIDE 26.3 mmol/L (22-30.0); CHLORIDE 106.2 mmol/L (98-107); CREATININE 0.77 mg/dL (0.60-1.30); POTASSIUM 3.97 mmol/L (3.5-5.1); SODIUM 136.7 mmol/L (134.5-145); TOTAL PROTEIN 6.18 g/dL (6.3-8.2)
[2020-03-13] MEDS: FLAGYL PO SCH ×3 (05:45→21:26)
[2020-03-13] MEDS: SODIUM CHLORIDE 1,000 ML IV SCH ×2 (05:45→19:40)
--- NOTE | 2020-03-13 08:17 | PCM.PROG ---
Attending Provider: ATTENDING PROVIDER: Dr. EVENS JERONIMO DATE OF SERVICE: 03/13/20 SUBJECTIVE: This 69 year old /WHITE F was hospitalized 03/12/20 with acute diverticulitis. The patient had left lower quadrant pain. The patient has been up and about on her own. REVIEW OF SYSTEMS: CONSTITUTIONAL: No night sweats. No fatigue, malaise, lethargy. No fever or chills. HEENT: Eyes: No visual changes. No eye pain. No eye discharge. ENT: No runny nose. No epistaxis. No sinus pain. No odynophagia. No congestion. RESPIRATORY: No cough, no congestion. No hemoptysis. No shortness of breath. CARDIOVASCULAR: No angina symptoms. No CHF symptoms. No atypical chest pain for CAD. No palpitations. No orthopnea.. GASTROINTESTINAL: No abdominal pain. No nausea or vomiting. No diarrhea or constipation. No hematemesis. No hematochezia. GENITOURINARY: No urgency. No frequency. No dysuria. No hematuria. No obstructive symptoms. No discharge. No pain. No significant abnormal bleeding. MUSCULOSKELETAL: No musculoskeletal pain; no joint swelling. Left lower quadrant soreness. NEUROLOGICAL: Awake, alert, oriented to time, place and person. No headache. No neck pain. No syncope. No seizures. No dizziness. PSYCHIATRIC: Not anxious. No depression. No suicidal thoughts. No homicidal thoughts. SKIN: No rash. No lesions. No wounds. ENDOCRINE: No unexplained weight loss. No weight gain. HEMATOLOGIC/LYMPHATIC: No anemia. No purpura. No petechiae. No prolonged or excessive bleeding. No palpable lymph nodes. PHYSICAL EXAMINATION: GENERAL: The patient is awake, alert and oriented, lying in bed in no distress. VITAL SIGNS: Temperature 97.8 F, Pulse 61, Respiratory Rate 16, BP 119/79, Pulse Ox 94% HEENT: Head normocephalic, atraumatic. Eyes: Extraocular muscles are intact. Pupils are equal, round and reactive to light and accommodation. Ears: No lesions. Nose appeared normal. Throat: No exudate or erythema. NECK: Supple. No JVD, no carotid bruit. No lymphadenopathy or thyromegaly. LUNGS: Clear to auscultation. Percussion note normal. Chest symmetrical. HEART: S1, S2, no S3. No murmurs. No cyanosis or clubbing. No ascites. Pulse s: Dorsalis pedis and posterior tibial pulses +1 to +2 both sides. ABDOMEN: Soft. Non-tender. Bowel sounds active. No CVA tenderness. No mass felt. EXTREMITIES: No edema. Full range of motion of all extremities, equal. NEUROLOGIC: No focal deficit. Cranial nerves II through XII are grossly intact. No headache, no double vision or headache. SKIN: Warm and dry. Intact. Turgor-normal. LYMPHATIC: No palpable lymph nodes/no lymphedema. MUSCULOSKELETAL: Normal joints with no swelling. Muscle tone is normal. LAB REVIEW: 03/13/20 04:55 03/13/20 04:55 03/13/20 04:55: Sodium 136.7, Potassium 3.97, Chloride 106.2, Carbon Dioxide 26.3, Anion Gap 8.17, BUN 11.8, Creatinine 0.77, Estimated GFR (MDRD) 74.00, BUN/Creatinine Ratio 15.32, Glucose 92.0, Calcium 9.22, Total Bilirubin 0.47, AST 26.4, ALT 16.3, Alkaline Phosphatase 71.6, Total Protein 6.18 L, Albumin 3.39 L, Globulin 2.79, Albumin/Globulin Ratio 1.21 03/13/20 04:55: WBC 5.28 D, RBC 4.10 L, Hgb 13.6, Hct 40.1, MCV 97.8, MCH 33.2 H, MCHC 33.9, RDW Coeff of [place] 13.1, Plt Count 147, Immature Gran % (Auto) 0.2, Neut % (Auto) 69.1, Lymph % (Auto) 21.0, [place] % (Auto) 8.0, Eos % (Auto) 1.3, Baso % (Auto) 0.4, Neut # (Auto) 3.7, Lymph # (Auto) 1.1, [place] # (Auto) 0.4, Eos # (Auto) 0.1, Baso # (Auto) 0.0, Immature Gran # (Auto) 0.0 03/12/20 12:20: Sodium 135.8, Potassium 4.12, Chloride 101.8, Carbon Dioxide 27.9, Anion Gap 10.22, BUN 12.8, Creatinine 0.83, Estimated GFR (MDRD) 68.00, BUN/Creatinine Ratio 15.42, Glucose 94.7, Calcium 9.79, Total Bilirubin 0.82, AST 38.6 H, ALT 20.7, Alkaline Phosphatase 93.1, Total Protein 7.61, Albumin 4.3 2, Globulin 3.29, Albumin/Globulin Ratio 1.31 03/12/20 12:20: WBC 10.77 H, RBC 4.68, Hgb 15.4, Hct 45.5, MCV 97.2, MCH 32.9 H, MCHC 33.8, RDW Coeff of [place] 13.0, Plt Count 168, Immature Gran % (Auto) 0.4, Neut % (Auto) 80.1 H, Lymph % (Auto) 10.8, [place] % (Auto) 8.2, Eos % (Auto) 0.3, Baso % (Auto) 0.2, Neut # (Auto) 8.6 H, Lymph # (Auto) 1.2, [place] # (Auto) 0.9, Eos # (Auto) 0.0, Baso # (Auto) 0.0, Immature Gran # (Auto) 0.0 03/12/20 12:05: Urine Color [place], Urine Clarity Clear, Urine pH 5.5, Ur Specific [place] 1.025, Urine Protein 1+ H, Urine Glucose (UA) Negative, Urine Ketones Negative, Urine Blood 1+ H, Urine Nitrite Positive H, Urine Bilirubin 1+ H, Urine Urobilinogen 1.0 H, Ur Leukocyte Esterase Negative, Urine Microscopic WBC 2-5, Ur Squamous Epith Cells 10-20, Urine Bacteria 2+ ASSESSMENT: Please see below. 1. Acute diverticulitis seem to be responding to IV antibiotics PLAN: 1. Advance diet 2. Continue antibiotics 3. Education carried out for diet for diverticulitis of colon 4. Cardiovascular status is stable 5. Counseling for smoking done. Plan and coordination of the patient's care discussed in the presence of Doctor Of Naprapathic Medicine and nurse. SCRIBED BY: TINO MCDONALD Rivet Sticker scribed while in presence of service performed by Dr. EVENS JERONIMO on 03/13/20 ([id number])
[2020-03-13] MEDS: LEVAQUIN 750 MG/150 ML D5W 750 MG/150 ML BAG IV SCH (08:35)
[2020-03-13] MEDS: LOVENOX SUBCUT SCH (08:35)
[2020-03-13] MEDS: IMDUR PO SCH (08:36)
[2020-03-13] MEDS: PLAVIX PO SCH (08:36)
[2020-03-13] MEDS: CRESTOR PO SCH (08:36)
[2020-03-13] MEDS: ASPIRIN EC PO SCH (08:36)
[2020-03-13] MEDS: ZESTRIL PO SCH (08:37)
[2020-03-13] MEDS: DITROPAN XL PO SCH (08:37)
[2020-03-13] MEDS: LOPRESSOR PO SCH ×2 (08:37→21:26)
[2020-03-13] MEDS: RANEXA PO SCH ×2 (08:37→21:26)
--- NOTE | 2020-03-13 08:48 | HP ---
DATE OF SERVICE: 03/12/20 REASON FOR HOSPITALIZATION/HISTORY OF PRESENT ILLNESS: 69-year-old white female who presented to the emergency room with abdominal pain complaining of left lower quadrant abdominal pain for two days, has associated diarrhea with intense cramping. PAST MEDICAL HISTORY: Recent hospitalization in December of 2019 with chest pain at [facility]. Urinary incontinence Coronary artery disease with stent and CABG Hypertension LVH Dyslipidemia COPD Smoker B12 deficiency Insomnia Carpal tunnel syndrome repaired by Dr. Falcon Long history of noncompliance of diet, lifestyle and medications History of [place] Hypertension PAST SURGICAL HISTORY: Cardiac cath, December 2017 Bilateral carpal tunnel release by Dr. Falcon CABG Stent in 2008 Heart cath in 2007 showed acute occlusion of SVG to diagonal with large thrombus burden REVIEW OF SYSTEMS: CONSTITUTIONAL: Fatigue. No night sweats. No malaise, lethargy. No fever or chills. HEENT: Eyes: No visual changes. No eye pain. No eye discharge. ENT: No runny nose. No epistaxis. No sinus pain. No sore throat. No odynophagia. No ear pain. No congestion. RESPIRATORY: No cough, no congestion. No hemoptysis. No shortness of breath. CARDIOVASCULAR: No angina symptoms. No CHF symptoms. No atypical chest pain for CAD. No palpitations. No PND. No orthopnea. GASTROINTESTINAL: Positive for abdominal pain, diarrhea. No nausea or vomiting. No constipation. No hematemesis. No hematochezia. GENITOURINARY: No urgency. No frequency. No dysuria. No hematuria. No obstructive symptoms. No discharge. No pain. No significant abnormal bleeding. MUSCULOSKELETAL: No musculoskeletal pain. No joint swelling. No arthritis. NEUROLOGICAL: No headache. No neck pain. No syncope. No seizures. No dizziness. PSYCHIATRIC: Not anxious. No depression. No suicidal thoughts. No homicidal thoughts. SKIN: No rash. No lesions. No wounds. ENDOCRINE: No unexplained weight loss. No weight gain. HEMATOLOGIC/LYMPHATIC: No anemia. No purpura. No petechiae. No prolonged or excessive bleeding. No palpable lymph nodes. PERSONAL/FAMILY/SOCIAL HISTORY: She is a smoker. She is . Lives alone. No alcohol or ilicit drug use. MEDICATIONS: Trazodone 100 mg bedtime Rosuvastatin 40 mg daily Oxybutynin 10 mg daily [place] 3 fatty acids one each 5XD p.r.n. Nitroglycerin 0.4 mg p.o. q.5 min times three doses p.r.n. Lisinopril 10 mg daily Clopidogrel 75 mg daily Aspirin 81 mg daily with meal Metoprolol 25 mg b.i.d. Isosorbide Mononitrate 30 mg p.o. daily Ranolazine 500 mg p.o. b.i.d. ALLERGIES: NKDA PHYSICAL EXAMINATION: VITAL SIGNS: Temperature 98.9, heart rate 75, respirations 18, BP 112/71, pulse ox 96%. HEENT: Head normocephalic, atraumatic. Eyes: Extraocular muscles are intact. Pupils are equal, round and reactive to light and accommodation. Ears: No lesions. Nose appeared normal. Throat: No exudate or erythema. NECK: Supple. No JVD, no carotid bruit. No lymphadenopathy or thyromegaly. LUNGS: Diminished breath sounds bilaterally. Clear to auscultation. Percussion note normal. Chest symmetrical. HEART: S1, S2, no S3. No murmur. No cyanosis or clubbing. No ascites. Pulses: Dorsalis pedis and posterior tibial pulses +1 to +2 bilaterally. ABDOMEN: Acute abdominal tenderness left lower quadrant. Soft. Bowel sounds active. No CVA tenderness. No mass felt. EXTREMITIES: No edema. Full range of motion of all extremities, equal. NEUROLOGIC: No focal deficit. Cranial nerves II through XII are grossly intact. No headache, no double vision or headache. SKIN: Not dry. Intact. Turgor - normal. LYMPHATIC: No palpable lymph nodes/no lymphedema. MUSCULOSKELETAL: Normal joints with no swelling. Muscle tone is normal. LABS/IMAGING: CT of the abdomen and pelvis showed moderate acute sigmoid diverticulitis, cholelithiasis, previous splenic infarct. Sodium 135, potassium 4.12, BUN 12, creatinine 0.83, AST 38, ALT 20, white count 10.77. Hemoglobin 15.4, hematocrit 45.5, platelets 168. Urine shows 1+ protein, 1+ blood, positive nitrites, positive bili, 2+ bacteria. ASSESSMENT: 1. Acute sigmoid diverticulitis. 2. Acute urinary tract infection. 3. Coronary artery disease with history of stent and CABG. 4. COPD. 5. Noncompliance with diet, meds, lifestyle. 6. Hypertension. PLAN: 1. We will admit. 2. Routine telemetry orders. 3. CBC, CMP daily. 4. Start Levaquin 500 mg IV daily 5. Start Flagyl 500 mg IV q.8. 6. Clear liquid diet. 7. Urine for culture. 8. Continue home medications 9. NS at 75 cc/hr. 10. Zofran 4 mg IV q.6hr p.r.n. for nausea 11. Will follow closely. TIME SPENT: More than 70 minutes. MTDD
[2020-03-13] MEDS ORDERED: LEVAQUIN 500 MG/100 ML D5W 500 MG/100 ML BAG IV SCH (09:00)
--- NOTE | 2020-03-13 09:14 | PN ---
DATE OF SERVICE: 03/12/2020 SUBJECTIVE: The patient was seen and examined with the Nurse Practitioner. The patient is hospitalized through the emergency room with acute diverticulitis. The patient is being treated with IV antibiotics. History and physical was done with Nurse Practitioner. TIME SPENT: More than 30 minutes. Plan and coordination of the patient's care discussed in the presence of nurse. TYRONE
[2020-03-13] MEDS: DESYREL PO SCH (21:26)
[2020-03-14 05:47] VITALS: BP 146/72; TEMP 97.7
[2020-03-14] MEDS: FLAGYL PO SCH ×2 (06:04→12:24)
[2020-03-14 06:18] LABS: BASOPHILS % (AUTO) 0.5 % (0.0-3.0); EOSINOPHILS # (AUTO) 0.1 K/ul (0.0-0.7); EOSINOPHILS % (AUTO) 2.6 % (0.0-7.0); HEMATOCRIT 38.7 % (37.0-47.0); IMMATURE GRANULOCYTE % (AUTO) 0.2 % (0.0-5.0); MEAN CORPUSCULAR HEMOGLOBIN 32.6 pg (27.0-31.0); MEAN CORPUSCULAR HGB CONC 33.6 (31.8-35.4); MONOCYTES # (AUTO) 0.3 K/uL (0.4-2.0); NEUTROPHILS # (AUTO) 2.8 K/ul (2.0-6.9); NEUTROPHILS % (AUTO) 65.7 % (42.2-75.2); PLATELET COUNT 134 10^3/uL (140-440); RDW COEFFICIENT OF VARIATION 12.8 % (11.6-14.8); RED BLOOD COUNT 3.99 10^6/ul (4.20-5.40); WHITE BLOOD COUNT 4.27 K/ul (4.6-10.2)
[2020-03-14 06:24] LABS: ALANINE AMINOTRANSFERASE 23.1 U/L (0-35); ALBUMIN 3.19 g/dL (3.5-5.0); ALKALINE PHOSPHATASE 74.6 U/L (53-141); ASPARTATE AMINO TRANSFERASE 30.6 U/L (14-36); BILIRUBIN,TOTAL 0.23 mg/dL (0.2-1.3); BLOOD UREA NITROGEN 14.6 mg/dL (7-17); CALCIUM 9.33 mg/dL (8.4-10.2); CARBON DIOXIDE 25.1 mmol/L (22-30.0); CHLORIDE 108.5 mmol/L (98-107); CREATININE 0.81 mg/dL (0.60-1.30); GLUCOSE 94.3 mg/dL (74-106); POTASSIUM 4.2 mmol/L (3.5-5.1); SODIUM 137.9 mmol/L (134.5-145); TOTAL PROTEIN 5.78 g/dL (6.3-8.2)
[2020-03-14] MEDS: SODIUM CHLORIDE 1,000 ML IV SCH (07:30)
[2020-03-14] MEDS: CRESTOR PO SCH (08:45)
[2020-03-14] MEDS: RANEXA PO SCH (08:45)
[2020-03-14] MEDS: DITROPAN XL PO SCH (08:46)
[2020-03-14] MEDS: LOPRESSOR PO SCH (08:46)
[2020-03-14] MEDS: ASPIRIN EC PO SCH (08:46)
[2020-03-14] MEDS: PLAVIX PO SCH (08:46)
[2020-03-14] MEDS: ZESTRIL PO SCH (08:46)
[2020-03-14] MEDS: LOVENOX SUBCUT SCH (08:46)
[2020-03-14] MEDS: IMDUR PO SCH (08:46)
[2020-03-14] MEDS: LEVAQUIN 750 MG/150 ML D5W 750 MG/150 ML BAG IV SCH (08:54)
--- NOTE | 2020-03-17 09:53 | PN ---
DATE OF SERVICE: 03/14/2020 SUBJECTIVE: 69 year old white female was seen today. The patient's abdominal pain has resolved. She is up and about and eating well, had a good breakfast. Also had a soft bowel movement this morning. She absolutely has no abdominal pain. No symptoms of CHF or coronary insufficiency. REVIEW OF SYSTEMS: CONSTITUTIONAL: No night sweats. No fatigue, malaise, lethargy. No fever or chills. HEENT: Eyes: No visual changes. No eye pain. No eye discharge. ENT: No runny nose. No epistaxis. No sinus pain. No sore throat. No odynophagia. No congestion. RESPIRATORY: No cough, no congestion. No hemoptysis. No shortness of breath. CARDIOVASCULAR: No angina symptoms. No CHF symptoms. No atypical chest pain for CAD. No palpitations. No PND. No orthopnea. GASTROINTESTINAL: No abdominal pain. No nausea or vomiting. No diarrhea or constipation. No hematemesis. No hematochezia. GENITOURINARY: No urgency. No frequency. No dysuria. No hematuria. No obstructive symptoms. No discharge. No pain. No significant abnormal bleeding. MUSCULOSKELETAL: No musculoskeletal pain; no joint swelling. NEUROLOGICAL: No headache. No neck pain. No syncope. No seizures. No dizziness. PSYCHIATRIC: Not anxious. No depression. No suicidal thoughts. No homicidal thoughts. SKIN: No rash. No lesions. No wounds. ENDOCRINE: No unexplained weight loss. No weight gain. HEMATOLOGIC/LYMPHATIC: No anemia. No purpura. No petechiae. No prolonged or excessive bleeding. No palpable lymph nodes. PHYSICAL EXAMINATION: GENERAL: The patient is oriented to time, place and person. VITAL SIGNS: Temperature 97.7, pulse 60, respiratory rate 20, blood pressure 146/72 and pulse ox 95%. HEENT: Head normocephalic, atraumatic. Eyes: Extraocular muscles are intact. Pupils are equal, round and reactive to light and accommodation. Ears: No lesions. Nose appeared normal. Throat: No exudate or erythema. NECK: Supple. No JVD, no carotid bruit. No lymphadenopathy or thyromegaly. LUNGS: Decreased breath sounds but clear to auscultation. Percussion note normal. Chest symmetrical. HEART: S1, S2, no S3. No murmurs. No cyanosis or clubbing. No ascites. Pulses: Dorsalis pedis and posterior tibial pulses +1 to +2 bilaterally. ABDOMEN: Soft. Nontender. Bowel sounds active. No CVA tenderness. No mass felt. No tenderness in the left lower quadrant. EXTREMITIES: No edema. Full range of motion of all extremities, equal. NEUROLOGIC: No focal deficit. Cranial nerves II through XII are grossly intact. No headache, no double vision or headache. SKIN: Not dry. Intact. Turgor - normal. LYMPHATIC: No palpable lymph nodes/no lymphedema. MUSCULOSKELETAL: Normal joints with no swelling. Muscle tone is normal. LABS: Hgb 13, hct 38, WBC 4,200 normal differential, creatinine 0.8, BUN 14, potassium 4.2. ASSESSMENT: 1. Acute diverticulitis seems to have resolved. 2. E-coli urinary tract infection which seems to be asymptomatic PLAN: 1. We will give Flagyl, at the time of discharge the patient was on Levaquin but e-coli resistant to Levaquin. 2. The patient was explained about the diet. CONDITION: Stable. TIME SPENT: More than 30 minutes. Plan and coordination of the patient's care discussed in the presence of nurse. TYRONE
--- NOTE | 2020-03-17 10:56 | DS ---
DATE OF SERVICE: 03/14/2020 FINAL DIAGNOSIS: 1. Acute diverticulitis 2. Urinary tract infection, e-coli 3. Chronic lung disease with history of heavy smoking 4. Obesity with sedentary lifestyle 5. Hypertension 6. Dyslipidemia 7. Coronary artery disease 8. Insomnia DISCHARGE INSTRUCTIONS: Discharge home. MEDICATIONS AT DISCHARGE: Aspirin Clopidogrel Lisinopril Metoprolol Nitroglycerin Oxybutynin Rosuvastatin Trazodone Isosorbide [place] NEW PRESCRIPTIONS: Septra BID for 7 days Flagyl 500mg TID for 5 days DIET INSTRUCTIONS: Strongly advised to void seeds. The patient had a bag of popcorn and after that she started having abdominal pain for at least 3-4 days before she came to the emergency room. Counseling for weight loss diet done. The patient denied any EGD or colonoscopy. The patient doesn't have any reflux symptoms but the patient strongly needs colonoscopy which she had declined for number of years. ACTIVITY: As tolerating SMOKING: Counseling for smoking done HOSPITAL COURSE: 69 year old white female hospitalized with abdominal pain. The patient had acute diverticulitis. The patient's condition improved with NPO and also with IV antibiotics Flagyl and Levaquin. The patient's U/A was abnormal, cultures grew e-coli with a resistance to Levaquin. The patient at the time of discharge was started on Septra BID for 7 days along with Flagyl. Discharge the patient's condition is stable. She is up and about having no abdominal pain. Bowel movement with regular this morning. Her breakfast she ate it 100%. There is no nausea or vomiting. The patient doesn't have any symptoms of CHF or CAD. She is a high risk for acute myocardial event and acute coronary event, CVA. She was explained about these findings. Again colonoscopy was declined by the patient. CONDITION: Stable LABS: HGb 13, hct 38, WBC 4,200 normal differential, creatinine 0.8, BUN 14, potassium 4.2. TIME SPENT: More than 60 minutes. MTDD
--- NOTE | 2020-03-17 10:57 | PN ---
03/12/2020: Level 5 03/13/2020: Intermediate 03/14/2020: D as in discharge MTDD
== END 2020-03-14 13:08 | disposition home or self-care (01) | DRG 392 ==
LOC: ED 11:07 → MEDSURG B 14:56
PROVIDERS: ADMIT Internal Medicine; ATTEND Internal Medicine
DX: E66.9 Obesity, unspecified; Z51.81 Encounter for therapeutic drug level monitoring; I10 Essential (primary) hypertension; Z95.5 Presence of coronary angioplasty implant and graft; J44.9 Chronic obstructive pulmonary disease, unspecified; I25.810 Atherosclerosis of coronary artery bypass graft(s) without angina pectoris; I25.2 Old myocardial infarction; N39.0 Urinary tract infection, site not specified; B96.20 Unspecified Escherichia coli [E. coli] as the cause of diseases classified elsewhere; E78.5 Hyperlipidemia, unspecified; Z79.899 Other long term (current) drug therapy; K57.32 Diverticulitis of large intestine without perforation or abscess without bleeding; G47.00 Insomnia, unspecified; F17.210 Nicotine dependence, cigarettes, uncomplicated; Z91.19 Patient's noncompliance with other medical treatment and regimen